=== PATIENT | female | born 1985 | race Caucasian/White ===

== ENCOUNTER 2019-07-09 21:51 | Emergency (ER) | payer SELFPAY ==
[~2019-07-09] VITALS: Ht 170.2 cm; Wt 58.0 kg
[~2019-07-09 21:51] MED LIST: LOMOTIL2.5 MG PO; ZOFRAN ODT4 MG SL
[2019-07-09 22:31] LABS: HEMATOCRIT 38.6 % (37.0-47.0); IMMATURE GRANULOCYTES 0.4 % (0.0-5.0); MEAN CELL VOLUME 88.5 fL CALC (80.0-100.0); MEAN CORPUSCULAR HGB CONC 33.9 g/L CALC (32.0-36.0); NEUT# 12.59 thou/uL (2.00-7.15); RED BLOOD COUNT 4.36 mill/uL (4.20-5.60); RED CELL DISTRI WIDTH 11.9 % (11.5-15.5)
[2019-07-09 22:32] LABS: URINE BILIRUBIN - DIPSTICK NEGATIVE (NEGATIVE); URINE BLOOD DIPSTICK NEGATIVE (NEGATIVE); URINE COLOR YELLOW; URINE GLUCOSE - DIPSTICK NEGATIVE (NEGATIVE); URINE KETONE NEGATIVE (NEGATIVE); URINE LEUK ESTERASE TRACE (NEGATIVE); URINE NITRITE - DIPSTICK NEGATIVE (Negative); URINE PH 6.5 (4.5-8.0); URINE PROTEIN - DIPSTICK NEGATIVE (NEG-TRACE); URINE UROBILINOGEN - DIPSTICK 0.2 E.U./dL (0.2)
[2019-07-09 22:42] LABS: ALBUMIN 4.5 g/dL (3.2-5.0); ALKALINE PHOSPHATASE 67 u/l (38-126); BILIRUBIN, TOTAL 0.6 mg/dL (0.0-1.4); BUN 12 mg/dL (7-17); BUN/CREATININE RATIO 18 (12-20 (CALC)); CARBON DIOXIDE 21 mmol/l (22-30); CHLORIDE 104 mmol/l (95-108); CREATININE 0.7 mg/dL (0.5-1.0); GFR > 60 ML/MIN (>=60 (CALC)); GFR FOR AFR.AMER. > 60 ML/MIN (>=60 (CALC)); SGOT/AST 18 u/l (14-36)
[2019-07-09 22:46] LABS: ANION GAP 14 (6-22 (CALC)); SODIUM 135 mmol/l (137-146)
[2019-07-09 22:53] LABS: HEMOGLOBIN 13.1 g/dl (12.0-16.0)
[2019-07-10 02:30] VITALS: BP 110/69
== END 2019-07-10 02:30 | disposition home or self-care (01) | DRG 153 ==
LOC: ED 21:51
PROVIDERS: Emergency Medicine
DX: J06.9 Acute upper respiratory infection, unspecified (principal); R50.9 Fever, unspecified

== ENCOUNTER 2024-03-09 17:30 | Emergency (ER) | payer SELFPAY ==
[~2024-03-09] VITALS: Ht 172.7 cm; Wt 70.3 kg
[~2024-03-09 17:30] MED LIST changes: +IMODIUM2 MG PO; +NITROFURANTN100 M2 PO; +PAXLOVID PO; +TAM75CAP PO; +TRAMADOL HYDROC50 M1 PO; +ZOFRAN4 MG/TAB PO
[2024-03-09 17:40] VITALS: BP 139/90
[2024-03-09 17:45] VITALS: BP 125/86
[2024-03-09] MEDS ORDERED: VIBRAMYCIN100 M2 PO ×2 (17:53→18:09)
[2024-03-09 18:00] VITALS: BP 114/72
[2024-03-09 18:15] VITALS: BP 111/73
[2024-03-09 18:30] VITALS: BP 111/70
== END 2024-03-09 18:40 | disposition home or self-care (01) | DRG 603 ==
LOC: ED 17:30
DX: L03.314 Cellulitis of groin (principal); L02.214 Cutaneous abscess of groin

== ENCOUNTER 2024-03-13 01:46 | Emergency (ER) | payer SELFPAY ==
[~2024-03-13] VITALS: Ht 172.7 cm; Wt 70.3 kg
[~2024-03-13 01:46] MED LIST changes: +VIBRAMYCIN100 M2 PO
[2024-03-13] MEDS ORDERED: SULFAMETHOXAZOLE W/TRIMETHOPRI 1 COMBO TAB PO ONE (02:35)
[2024-03-13] MEDS ORDERED: BACTRIM DS1 TAB PO (02:38)
[2024-03-13 03:16] VITALS: BP 139/83
== END 2024-03-13 03:16 | disposition home or self-care (01) | DRG 603 ==
LOC: ED 01:46
DX: L03.314 Cellulitis of groin (principal); J45.909 Unspecified asthma, uncomplicated; T36.96XA Underdosing of unspecified systemic antibiotic, initial encounter; Z91.128 Patient's intentional underdosing of medication regimen for other reason